=== PATIENT | female | born 1960 | race Caucasian/White ===

== ENCOUNTER → 2016-08-17 | Day surgery (SDC) | payer OTHER ==
--- NOTE | 2016-08-10 15:57 | MH ---
cc: RISA AVILA M.D. DATE OF ADMISSION: 08/17/2016 PRINCIPAL DIAGNOSIS Right breast cancer. ATTENDING PHYSICIAN Risa Avila MD HISTORY OF PRESENT ILLNESS The patient is a 56-year-old female who was noted to have a BI-RADS 5 density in the right breast on a screening mammogram May 05 at [facility]. This was confirmed with a diagnostic right breast mammogram and ultrasound on May 26 where a palpable 12-mm hypoechoic nodule was noted in the 12 o'clock location 4 cm from the nipple. Ultrasound-guided core biopsy confirmed a moderately differentiated invasive ductal carcinoma. Clinically the patient has stage I disease but she has opted for bilateral mastectomy with immediate reconstruction. PAST MEDICAL HISTORY Medical problems include: Hypertension, history of metabolic syndrome but these resolved after gastric bypass in 2010 and she has lost over 100 pounds since her surgery. She also has thyroid nodules and had a transient ischemic attack 7 years ago. PAST SURGERIES Included a section in 1980 for breech delivery, gastric bypass, laparoscopic appendectomy in 2014, total abdominal hysterectomy and bilateral salpingo-oophorectomy in 2003 for endometriosis. She has also required two laparoscopic surgeries for lysis of adhesions from small bowel obstruction. CURRENT MEDICATIONS Tylenol and bariatric vitamins. ALLERGIES She has no documented drug allergies but does not take aspirin products because of her gastric pouch. REPRODUCTIVE HISTORY G2, P1, A1. Menarche age 13, first child age 21. She had a tubal in the past and had surgical menopause at age 44. She took hormone replacements for approximately 2 months after her hysterectomy but none since that time. FAMILY HISTORY Significant for a sister with uterine cancer. REVIEW OF SYSTEMS A 12-point review of systems was significant for pelvic abdominal pain related to scar. PHYSICAL EXAMINATION GENERAL: She is alert and oriented x3 and in no acute distress. VITAL SIGNS: She was 5 feet 6 inches and weighed 171 pounds with a BMI of 27.6. Blood pressure was 133/81, temperature 97, heart rate 61, respirations 17. HEENT: Exam was unremarkable. NECK: The neck was supple with no adenopathy or thyromegaly. CHEST: Chest was clear throughout. CARDIAC: Cardiac exam was unremarkable. BREASTS: Exam revealed fibrocystic change and the right breast was larger than the left. A 1 cm superior lateral quadrant mass was palpated in the right breast at 12 o'clock 4 cm from the nipple with a healed biopsy site. ABDOMEN: Abdominal exam revealed well-healed port scars and a hysterectomy scar but there was no masses or tenderness. The remainder of her exam was unremarkable. IMPRESSION Ms. Valle has clinical stage I invasive ductal carcinoma and has opted for a bilateral mastectomy with immediate reconstruction. She has seen Dr. Lind to coordinate reconstruction and will also need a right axillary sentinel lymph node biopsy. She understands the risks and benefits of the procedure and has agreed to proceed. MD FLAVIO Sanchez/WING /1:58 PM /3:54 PM
--- NOTE | 2016-08-14 15:16 | TH ---
cc: DAWSON CABA M.D. DATE: 08/17/2016 DATE OF : 1960 PROCEDURE TO BE PERFORMED Bilateral insertion of tissue expanders ADM, 133SV-15. HISTORY OF PRESENT ILLNESS This is a 56-year-old female who was recently diagnosed with breast cancer and is here in order to address breast reconstruction options. PAST MEDICAL HISTORY 1. Hypercholesterolemia. 2. Borderline diabetes. PAST SURGICAL HISTORY 1. Appendectomy. 2. . 3. Gastric bypass. 4. Cholecystectomy. 5. Hysterectomy. MEDICATIONS Escitalopram oxalate once a day. SOCIAL HISTORY The patient is an ex-smoker. Habits are benign. REVIEW OF SYSTEMS Noncontributory to the recurrent breast problem. BREAST HISTORY No knowledge of family history of breast cancer. PHYSICAL EXAMINATION GENERAL APPEARANCE: The patient is a well-developed female in no acute distress. Body habitus is within normal limits. There appear to be no deformities. Appears to have attention to grooming. HEENT: Conjunctiva and lids are within normal anatomical limits. The pupils are reactive to light and accommodation, size and symmetry. There is no evidence of exudate, hemorrhage, or vessel change. The external inspection of the ears and nose fails to demonstrate any pathology, scars, lesions, or masses. Nasal mucosa, septum, and turbinates appear to be well-hydrated as well as the lips and gums. No evidence of masses in the hypopharynx or submental area. CHEST: The patient shows no evidence of intercostal retractions. LUNGS: Clear to auscultation without any abnormal sounds or rubs. CARDIOVASCULAR: The patient has a normal heart rate and rhythm. There is no evidence of noted carotid bruits. Femoral pulses and pedal pulses in the extremities are also within normal limits. ABDOMEN: Soft with no evidence of masses or tenderness. Unable to palpate the liver or spleen. No evidence of hernia. MUSCULOSKELETAL: Appears to be reasonable range of motion of the head, neck, spine, ribs, pelvis, right upper extremity, left upper extremity, right lower extremity, and left lower extremity. The muscle strength and tone appears to be equal and within accepted limits. SKIN: There are no rashes, lesions, or ulcers on the trunk, back or extremities. NEUROLOGICAL: Examination is grossly normal. PSYCHIATRIC: The patient appears to have good orientation of time, place, and person. Does not appear to have any mood affects of depression, anxiety, or agitation. BREASTS: The breasts have been thoroughly examined. Obviously there is a deformity in the right breast where the cancer . Otherwise the left breast has slight ptosis. Asymmetric. ASSESSMENT AND PLAN After discussing the options with the patient, at least 30 minutes [id number], tissue expansion with AlloDerm was been addressed and discussed. We are planning on utilizing 133SV-15 tissue supervisor filling and packing with appropriate AlloDerm. The risks and possible complications were discussed in detail. Will schedule with Dr. Moseley. MD SARA Ordonez/MARII /2:16 PM /3:03 PM
[~2016-08-17] MED LIST: ACETAMINOPHEN 1000 MG/100 ML VIAL IV ONE; ACETAMINOPHEN/HYDROcodone 325 MG/5 MG TAB ONE; BACITRACIN IM FOR SOLN 50,000 UNIT VIAL ONE; BIOTIN PO; BUPIVACAINE HCL PF 0.5% 30 ML VIAL ONE; BUPIVACAINE/EPINEPHRINE 0.5% PF 30 ML VIAL ONE; CALCTAB32 PO; DICY20TA10 PO; GENTAMICIN SULFATE 80 MG/2 ML VIAL ONE; IRONTAB5 PO; ISOSULFAN BLUE 50 MG/5 ML VIAL SQ ONE; KETOROLAC TROMETHAMINE 30 MG/ML (IVP) VIAL ONE; KLOR8TAB PO; LACTATED RINGER'S 1000 ML INJ 1,000 ML ONE; LIDOCAINE 1%/EPINEPHrine 1:100,000 SOLN 30 ML VIAL ONE; MIDAZOLAM HCL 2 MG/2 ML VIAL ONE; MORPHINE SULFATE 4 MG/ML INJ ONE; ONDANSETRON HCL 4 MG/2 ML VIAL IV PUSH ONE; PROBIOTIC PO; PROPOFOL 200 MG/20 ML AMP IV ONE; RASPBERRY KETONE PO; SAFF1000 PO; SODIUM CHLORIDE 0.9% 20 ML VIAL ONE; SODIUM CHLORIDE 0.9% INJ 10 ML ONE; TAB-TAB PO; ceFAZolin 2 GM PREMIX 50 ML ONE; ceFAZolin INJ 1,000 MG VIAL ONE
--- NOTE | 2016-08-17 15:15 | TN ---
cc: RISA AVILA M.D. DATE OF SURGERY: 08/17/2016 PRINCIPAL DIAGNOSIS Right breast cancer. PROCEDURE PERFORMED Bilateral nipple sparing mastectomy with right axillary sentinel lymph node biopsy and immediate tissue podiatrist orthopedic reconstruction. SURGEON Risa Avila MD and Skyler Lind MD ANESTHESIA General via LMA device. INDICATION The patient is a 56-year-old female with newly diagnosed right breast cancer. Clinically she had stage I disease but she opted for bilateral mastectomy with immediate reconstruction. FINDINGS AT THE TIME OF SURGERY Two sentinel lymph nodes were identified. #1 had no count but was 1+ blue. #2 had no count and was not blue but it was somewhat suspicious. Touch prep was not performed. PROCEDURE PERFORMED After informed consent was obtained and site verification was performed, the patient was brought to the radiology suite where she underwent peritumoral radionuclide injection. She was then brought to the major operating room where she underwent general anesthesia via LMA device. She received a single dose of IV Ancef and sequential compression hose were placed. 200 ccs of tumescent solution mixed with 0.5% Marcaine with epinephrine was then infiltrated bilaterally and in the plane between the subcutaneous fat and anterior breast fascia as well as in the retro-glandular space above the pectoralis fascia. Both breasts were then prepped and draped in sterile fashion. 3 ccs of half-strength Lymphazurin were injected in the subareolar right breast and a 5-minute massage was performed. An inframammary crease incision was then created sharply and further sharp dissection was performed to develop the anterior plane between the subcutaneous fat and anterior breast fascia medially and laterally to the level of the nipple. Electrocautery dissection was then used to dissect the breast and pectoralis fascia off the pectoralis muscle medially and laterally up to the level of the clavicle. Further sharp dissection was then performed in the area of the nipple and a frozen section biopsy of the undersurface of the nipple was sent for frozen section on both sides which was negative for malignancy. Further sharp dissection was performed in the anterior plane up to the level of the clavicle and the breast was then oriented with two sutures anteriorly, one short suture superiorly, and one long suture laterally. The specimen was sent for permanent pathologic evaluation and good hemostasis was noted with electrocautery. A second counter incision was then created just beneath the axillary hairline using sharp dissection as well as electrocautery. The clavipectoral fascia was divided and the level I axilla was entered. Two palpable low level I lymph nodes were identified and each was circumferentially dissected free from surrounding structures using the harmonic scalpel. Lymph node #1 was 1+ blue and lymph node #2 was not blue or hot but it was suspicious. Both lymph nodes were sent for permanent pathologic evaluation and there was no other palpable adenopathy in the axilla. Good hemostasis was noted and reconstruction was then performed by Dr. Lind and will be included on a separate dictation. MD FLAVIO Sanchez/WING /2:16 PM /3:01 PM
--- NOTE | 2016-08-17 15:39 | TN ---
cc: SKYLER LIND DATE OF SURGERY: 08/17/2016 PREOPERATIVE DIAGNOSIS: Right breast cancer. POSTOPERATIVE DIAGNOSIS: Right breast cancer. OPERATIVE PROCEDURE PERFORMED: 1. Left simple mastectomy. 2. Left reconstruction utilizing a tissue digital content specialist AlloDerm. 3. Right breast reconstruction utilizing a tissue digital content specialist AlloDerm. 4. Closure of the axillary incision of complex repair, grand total of 5 cm. SURGEON: Skyler Lind MD, FACS. HEARING AID REPAIRER: Kenzie Galvin MS-3. ANESTHESIA: LMA/general. I also utilized approximately 120 cc of dilute Marcaine and injectable saline. DRAINS: A total of 4 (two per site) 10 and 7, respectively Beto-Zelaya drains in the subcutaneous plane and the subpectoral plane. IMPLANT DATA AND VOLUMES: 1. The patient's right breast tissue digital content specialist is a 133SZ of the [employer]. The total volume is 460; injected today, 300. The serial number of the right device is [id number]. 2. The serial number of the left tissue digital content specialist is [id number]. I also injected 300 for the maximum of 450. DESCRIPTION OF THE PROCEDURE IN DETAIL: She was properly consented, marked properly, anesthetized. The skin was sterilized with Betadine solution and sterile draping was applied. Utilizing a 15 blade after the proper tumescent fluid applied at the inframammary fold approximately 6-7 cm, a mastectomy was created by the subcutaneous plane and then the supra- fascia plane. The breast specimen was properly removed and anchored utilizing a superior short suture and a long lateral. A frozen section of the tubular area failed to demonstrate any pathology on both breasts. Elevation of the pectoralis major muscle at this point was properly carried out and reinforced at the inferomedial base with a 6 x 16 AlloDerm. The tissue digital content specialist was properly placed, deflated and then expanded to 300 cc. It was anchored with 2-0 Monocryl suture at the inframammary fold as well as the inferior edge of the pectoralis major muscle. The wound was closed utilizing multiple 2-0 Monocryl suture layers in the Naty's fascia, dermis and subcutaneous. Two drains were brought out before closing and they were placed as follows: The 10 mm Beto-Zelaya drain was placed in the subcutaneous plane and the 7 mm Beto-Zelaya drain was placed in the subpectoral plane. Those were secured utilizing 2-0 Monocryl suture, Biopatch and Tegaderm was utilized to secure the area as well. Attention was directed to the right breast where a mastectomy had been performed by Dr. Risa Roberts as well as an axillary sampling. I proceeded to close the axillary sampling by putting deep into the fascia of the axillary area sutures and a complex repair about 5 to [address] down to the Naty's, dermis and subcutaneous. Again, the complex repair was about 5 to 6 cm. In a similar fashion, the pectoralis major muscle on the right chest area was properly elevated. Lateral and inferior capsulorrhaphies were carried out in order to re-establish the anatomical landmarks. In the same fashion as previously described the tissue digital content specialist was introduced and reinforced with 6 x 16 Alloderm and anchored with the same 2-0 Monocryl suture material and expanded up to 3-0 Monocryl suture and the closure was done in a similar fashion as previously described. All drains were put to work and they were actually very active and held suction very well. The tissue appeared to be viable at the end of the procedure. Absorbing compression dressings were applied. The patient was awakened and extubated in the operating room and transferred back to the post-anesthesia care unit in stable condition. No complications were appreciated. The patient tolerated the procedure fairly well. MD SARA Ordonez/KATHE /2:56 PM /3:29 PM TANG
== END | disposition home or self-care (01) ==
LOC: ESDC 08:25
PROVIDERS: ATTEND Surgery
DX: C50.911 Malignant neoplasm of unspecified site of right female breast (principal)
CPT/HCPCS: 00400; 00402; 01610; 15777; 19304; 19357; 38525; 38792; 88305; 88307; 88331; C1789; J0131; J0690; J1580; J1885; J2250; J2270; J2405; J3010; J7120; Q4100; Q9968; 88309

== ENCOUNTER → 2016-11-28 | Day surgery (SDC) | payer OTHER ==
--- NOTE | 2016-11-24 11:39 | TH ---
cc: DAWSON CABA M.D. DATE: 11/24/2016 PROCEDURE PREFORMED: Removal of tissue expanders and placement for Inspire CX 580. HISTORY OF PRESENT ILLNESS: This is a pleasant 56 year-old female who back in August 17, 2016, underwent mastectomies with tissue medical office clerk reconstruction. The patient has done very well, has expanded without any difficulties and is ready to proceed with the exchange. PAST MEDICAL HISTORY: 1. Otherwise significant for hypercholesteremia. 2. Borderline diabetes. MEDICATIONS Escitalopram oxalate. PAST SURGICAL HISTORY: 1. Appendectomy fixation. 2. Gastric bypass. 3. Cholecystectomy. PHYSICAL EXAMINATION: CONSTITUTIONAL: General appearance. The patient is a well-developed Female in no acute distress. Body habitus is within normal limits. There appear to be no deformities. Appears to have attention to grooming. HEENT: Eyes Conjunctivae and lids are within normal anatomical limits. The pupils are reactive to light and accommodation, size, and symmetry. There is no evidence of exudate, hemorrhage, or vessel change. Ears, mouth, nose, and throat The external inspection of the ears and nose fails to demonstrate any pathology, scars, lesions, or masses. Nasal mucosa, septum, and turbinates appear to be well hydrated as well as the lips and gums. No evidence of masses in the hypopharynx or submental area. RESPIRATORY: The patient shows no evidence of intercostal refractions. Otherwise, lungs are clear to auscultation without any abnormal sounds or rubs. CARDIOVASCULAR: The patient has a normal heart rate and rhythm. There is no evidence of noticed carotid bruits. Femoral pulses and pedal pulses in extremities are also within normal limits. GASTROINTESTINAL/ABDOMEN: Soft with no evidence of masses or tenderness. Unable to palpate the liver or spleen. No evidence of hernia. MUSCULOSKELETAL: Appears to be reasonable range of motion on the head, neck, spine, ribs, pelvis, right upper extremity, left upper extremity, right lower extremity, and left lower extremity. The muscle strength and tone appears to be equal and within accepted limits. SKIN: There is no rashes, lesions, or ulcers on the trunk, back, and extremities. NEUROLOGICAL: Examination is grossly normal. PSYCHIATRIC: The patient appears to have good orientation of time, place, and person. Does not appear to have any mood effects of depression, anxiety, or agitation. ASSESSMENT: The breasts have been thoroughly examined, showed well healed inframammary incisions and mastectomy incisions and has otherwise no evidence of pathology. PLAN: The plan is for removal of implants, tissue expanders and placement for implants. MD SARA Ordonez/philip /11:10 AM /11:12 AM
[~2016-11-28] MED LIST changes: -ACETAMINOPHEN/HYDROcodone 325 MG/5 MG TAB ONE; -BUPIVACAINE HCL PF 0.5% 30 ML VIAL ONE; +BUPIVACAINE/EPINEPHRINE 0.25% PF 30 ML VIAL ONE; -BUPIVACAINE/EPINEPHRINE 0.5% PF 30 ML VIAL ONE; -ISOSULFAN BLUE 50 MG/5 ML VIAL SQ ONE; +KETOROLAC TROMETHAMINE 30 MG/ML (IVP) VIAL IV PUSH ONE; -KETOROLAC TROMETHAMINE 30 MG/ML (IVP) VIAL ONE; +LIDOCAINE 1%/EPINEPHrine 1:100,000 SOLN 20 ML VIAL ONE; -LIDOCAINE 1%/EPINEPHrine 1:100,000 SOLN 30 ML VIAL ONE; +MEPERIDINE HCL 25 MG/ML VIAL ONE; -MIDAZOLAM HCL 2 MG/2 ML VIAL ONE; -MORPHINE SULFATE 4 MG/ML INJ ONE; -SODIUM CHLORIDE 0.9% 20 ML VIAL ONE; -ceFAZolin 2 GM PREMIX 50 ML ONE
--- NOTE | 2016-11-28 14:09 | TN ---
cc: DAWSON CABA M.D. DATE OF SURGERY: 11/28/2016 PREOPERATIVE DIAGNOSIS Status post bilateral mastectomy with tissue expansion reconstruction. POSTOPERATIVE DIAGNOSIS Status post bilateral mastectomy with tissue expansion reconstruction. PROCEDURE: Removal, or replacement of Mercedes tissue expanders for implants Juany cartagena SCX 580 cc's. Serial number of the right breast implant device is [id number] and serial number of the left breast implant device [id number]. PROCEDURE NOTE She was properly consented, marked properly anesthetized the skin was sterilized with Betadine solution and sterile draping applied also 30 cc of 1% lidocaine epinephrine was mixed with 0.25% Marcaine and 2:1 ratio. Through a inframammary previous incision the capsule was encountered, the tissue cereal miller was removed laterally and a capsulorrhaphies were done bilaterally along the anterior axillary line and inframammary fold. Isolation of the skin was done with Tegaderm and introduction of the implant was carried out. We did exactly the same procedure on the other side. The wounds were closed in multiple layers utilizing 2-0 Monocryl suture in the capsule, dermis and Subcu. After Mastisol strips were applied. No complications appreciated. The patient the procedure well. MD SARA Ordonez/philip /1:54 PM /2:02 PM MTDKathleen
== END | disposition home or self-care (01) ==
LOC: ESDC 10:04
PROVIDERS: ATTEND Plastic Surgery
DX: Z42.1 Encounter for breast reconstruction following mastectomy (principal); Z85.3 Personal history of malignant neoplasm of breast
CPT/HCPCS: 00400; 11970; C1789; J0131; J0690; J1580; J1885; J2175; J2405; J3010; J7120

== ENCOUNTER → 2017-07-02 | Day surgery (SDC) | payer OTHER ==
--- NOTE | 2017-06-29 10:50 | TH ---
cc: DAWSON CABA M.D. DATE 06/29/2017 DATE OF 1960 PROCEDURE TO BE PERFORMED Bilateral mastopexy with revision reconstruction. HISTORY OF PRESENT ILLNESS This is a 56-year-old female who underwent placement of tissue bunch maker hand after mastectomy back on August of this current year with the change of the expanders with implants in November of this current year. The patient has developed significant ptosis and asymmetry reason for which we are doing this procedure. PAST MEDICAL HISTORY Otherwise significant for: 1. Hypercholesterolemia 2. Borderline diabetes MEDICATIONS Includes Escitalopram oxalate. PAST SURGICAL HISTORY 1. Appendectomy 2. Gastric bypass 3. Cholecystectomy PHYSICAL EXAMINATION CONSTITUTIONAL: General appearance. The patient is a well-developed female in no acute distress. Body habitus is within normal limits. There appear to be no deformities. Appears to have attention to grooming. HEENT: Eyes Conjunctivae and lids are within normal anatomical limits. The pupils are reactive to light and accommodation, size, and symmetry. There is no evidence of exudate, hemorrhage, or vessel change. Ears, mouth, nose, and throat The external inspection of the ears and nose fails to demonstrate any pathology, scars, lesions, or masses. Nasal mucosa, septum, and turbinates appear to be well hydrated as well as the lips and gums. No evidence of masses in the hypopharynx or submental area. RESPIRATORY: The patient shows no evidence of intercostal refractions. Otherwise, lungs are clear to auscultation without any abnormal sounds or rubs. BREASTS: Both breasts show well-healed inframammary mastectomy incisions, otherwise ptosis and areas of contour irregularity. CARDIOVASCULAR: The patient has a normal heart rate and rhythm. There is no evidence of noticed carotid bruits. Femoral pulses and pedal pulses in extremities are also within normal limits. GASTROINTESTINAL/ABDOMEN: Soft with no evidence of masses or tenderness. Unable to palpate the liver or spleen. No evidence of hernia. MUSCULOSKELETAL: Appears to be reasonable range of motion on the head, neck, spine, ribs, pelvis, right upper extremity, left upper extremity, right lower extremity, and left lower extremity. The muscle strength and tone appears to be equal and within accepted limits. SKIN: There is no rashes, lesions, or ulcers on the trunk, back, and extremities. NEUROLOGICAL: Examination is grossly normal. PSYCHIATRIC: The patient appears to have good orientation of time, place, and person. Does not appear to have any mood effects of depression, anxiety, or agitation. PLAN Revision/reconstruction, micro fat injections and bilateral mastopexy. The procedure has been explained in detail to the patient. MD SARA Ordonez/ELI /10:21 AM /10:28 AM
[~2017-07-02] MED LIST changes: +ACETAMINOPHEN 1000 MG/100 ML 100 ML IV ONE; -ACETAMINOPHEN 1000 MG/100 ML VIAL IV ONE; +ACETAMINOPHEN/HYDROcodone 325 MG/5 MG TAB ONE; -BACITRACIN IM FOR SOLN 50,000 UNIT VIAL ONE; -GENTAMICIN SULFATE 80 MG/2 ML VIAL ONE; -KETOROLAC TROMETHAMINE 30 MG/ML (IVP) VIAL IV PUSH ONE; +KETOROLAC TROMETHAMINE 30 MG/ML (IVP) VIAL ONE; -LIDOCAINE 1%/EPINEPHrine 1:100,000 SOLN 20 ML VIAL ONE; +LIDOCAINE 1%/EPINEPHrine 1:100,000 SOLN 30 ML VIAL ONE; +LIDOCAINE HCL 1% 50 ML VIAL ONE; +MIDAZOLAM HCL 2 MG/2 ML VIAL ONE; -ONDANSETRON HCL 4 MG/2 ML VIAL IV PUSH ONE; -PROPOFOL 200 MG/20 ML AMP IV ONE; -SODIUM CHLORIDE 0.9% INJ 10 ML ONE
--- NOTE | 2017-07-02 09:45 | TN ---
cc: SKYLER LIND M.D. DATE OF SURGERY: 07/02/2017 PREOPERATIVE DIAGNOSIS Status post bilateral mastectomy for further tissue pony trimmer/implant reconstruction with further deformity and ptosis. POSTOPERATIVE DIAGNOSIS Status post bilateral mastectomy for further tissue pony trimmer/implant reconstruction with further deformity and ptosis. PROCEDURE Revision reconstruction utilizing micro fat injections as well as bilateral mastopexy. SURGEON Skyler Lind MD FACS. ANESTHESIA LMA general. ESTIMATED BLOOD LOSS Minimal. COMPLICATIONS None. The total liposuction removed from the lower abdomen was 1000 cc. Total tumescent placed 1000 cc. Total suitable for injection 540 cc with 361 cc to the right breast and 181 cc to the left breast. The mastopexy was set at 22 cm from the sternal notch, 42 mm areolar diameter. DETAILS OF PROCEDURE The patient was properly consented, marked and anesthetized. The skin was sterilized with Betadine solution and sterile draping applied. The area was properly tumesced at the lower abdomen for 1000 cc of tumescent fluid in which 1000 cc 30 cc of 1% lidocaine with epinephrine was mixed. 1000 cc was harvested from the lower abdomen and flanks and suitable for injection was 540 cc. This was decanted and washed and put into smaller syringes where injections were carried out in the usual fashion. The right breast received 361 cc's and the left breast received 181 cc's.The patient was sat up tailor tack technique was utilized to assess the excess of skin on the right breast which was properly temporarily marked with surgical naila. This was properly marked with the marking pen. The naila were removed. The skin was de-epithelialized. The wounds were closed utilizing 2-0 Monocryl suture in the dermis and subcu. Then the NAC was brought up utilizing PTFE 2-0 as well as 2-0 Quill. The same approach and technique was performed on the left breast. Prineo Dermabond was applied thereafter. For the puncture wounds that were done utilizing an 11-blade for the harvesting of the fat and injection of the fat were closed utilizing 5-0 chromic suture and Steri-Strips applied. Absorbent dressing was applied thereafter. Good viability of tissue was noted at the end of the case. The patient was awakened, extubated in the operating room and transferred back to the post-anesthesia care unit in stable condition. No complications were appreciated. The patient tolerated the procedure fairly well. MD SARA Ordonez/MARII /9:29 AM /9:34 AM TANG
== END | disposition home or self-care (01) ==
LOC: ESDC 06:09
PROVIDERS: ATTEND Plastic Surgery
DX: N65.0 Deformity of reconstructed breast (principal); Z85.3 Personal history of malignant neoplasm of breast; N64.81 Ptosis of breast
CPT/HCPCS: 00402; 19316; 19380; J0131; J0690; J1885; J2175; J2250; J3010; J7120

== ENCOUNTER → 2017-12-27 | Day surgery (SDC) | payer OTHER ==
[~2017-12-27] VITALS: Ht 165.1 cm; Wt 82.1 kg
[~2017-12-27] MED LIST changes: -ACETAMINOPHEN 1000 MG/100 ML 100 ML IV ONE; -ACETAMINOPHEN/HYDROcodone 325 MG/5 MG TAB ONE; +ANAS1TAB PO; +BUPIVACAINE HCL PF 0.5% 10 ML VIAL ONE; -BUPIVACAINE/EPINEPHRINE 0.25% PF 30 ML VIAL ONE; +CALC1TAB16 PO; -CALCTAB32 PO; +CEPH-459 PO; +CHLORHEXIDINE GLUCONATE 2 % 1 PACK (2 CLOTHS) TOPICAL PRN; +HYDR-3288 PO; +IRON COMBINATIONS PO; -IRONTAB5 PO; -KETOROLAC TROMETHAMINE 30 MG/ML (IVP) VIAL ONE; -LACTATED RINGER'S 1000 ML INJ 1,000 ML ONE; +LACTATED RINGER'S 1000 ML IV PRN; -LIDOCAINE 1%/EPINEPHrine 1:100,000 SOLN 30 ML VIAL ONE; -LIDOCAINE HCL 1% 50 ML VIAL ONE; +LIDOCAINE HCL 2% 50 ML VIAL ONE; -MEPERIDINE HCL 25 MG/ML VIAL ONE; +METOPROLOL TARTRATE 25 MG TAB PO PRN; +NEOMYCIN/POLYMYXIN 1 ML G.U. IRRIGANT ONE; +NO ITAB PO; +POVIDONE IODINE 5% (ANTISEPSIS KIT) 4 APPLICATIONS EACH NARE PRN; -SAFF1000 PO; +SODIUM CHLORID 0.9% 500 ML IV PRN; -TAB-TAB PO; +[UNRECOGNIZED DRUG - CODE] PO; +ceFAZolin 1,000 MG/NS 100 ML IV SCH; -ceFAZolin INJ 1,000 MG VIAL ONE
--- NOTE | 2017-12-27 10:36 | MP ---
cc: Tho Canseco MD DATE OF OPERATION: 12/27/2017 PREOPERATIVE DIAGNOSIS: Left thumb trigger finger. POSTOPERATIVE DIAGNOSIS: Left thumb trigger finger. PROCEDURE PERFORMED: Left thumb A1 joe release. SURGEON: Tho Canseco III, MD PROCEDURE: The patient was brought to the operating room, placed supine on the operating table. After the correct site and side of surgery were verified by members of each team in the room multiple times including the patient and myself and after adequate preoperative markings and preoperative written consent were verified by everyone and after adequate preoperative timeout was performed to everyone's satisfaction and after adequate IV sedation had been achieved, the left upper extremity was prepped and draped in the traditional sterile surgical fashion. A 50:50 mixture of 2% plain lidocaine and 0.5% plain Marcaine was infiltrated in the skin and subcutaneous tissue in the area of the A1 joe. The limb was exsanguinated. A highly placed, well-padded axillary tourniquet was inflated to 200 mmHg for a total of 7 minutes. A transversely oriented incision at the MP flexion crease within the skin crease was made and carried down through skin and subcutaneous tissue. Blunt dissection was performed. Neurovascular structures were retracted out of the way. The A1 joe was identified and found to be very thick and redundant. It was divided in its entirety in its midline which completely freed the flexor tendon. The flexor tendon did not appear to be compromised in any other way. Exploration proximally and distally did not reveal any other crossing bands of tissue causing constriction. There were no other anatomic abnormalities. Thorough irrigation with saline was performed. Passive range of motion was full and unrestricted. Skin edges were reapproximated using a running 4-0 nylon suture. The hand and arm were thoroughly cleansed and dried. Betadine, Adaptic dressing applied on top of the wound followed by a bulky soft dressing. The axillary tourniquet was released. The hand and all the fingers became immediate soft, pink, warm with brisk capillary refill of less than 2 seconds. The patient was awakened from anesthesia and transported to the postanesthesia care unit awake and in stable condition at the end of the case. Sponge, needle and instrument counts were correct at the end of the case as reported by the nurses in the room. MD OLAMIDE Glasgow , 10:21 AM , 10:35 AM
[2017-12-27 11:30] VITALS: BP 129/80; PULSE 61; RESP 16; TEMP 97.6; O2SAT 100
--- NOTE | 2017-12-27 18:28 | EKG ---
Date Performed: 12/27/2017 Time Performed: 08:44:14 PTAGE: 57 years EKG: Sinus rhythm NORMAL ECG PREVIOUS TRACING : 09/20/2012 15.05 Since the previous tracing, no significant change noted DOCTOR: Le Diego Interpretating Date/Time 12/27/2017 18:27:13
== END | disposition home or self-care (01) ==
LOC: PHSDC 07:26
PROVIDERS: ATTEND Orthopaedic Surgery Hand Surgery
DX: M65.312 Trigger thumb, left thumb (principal); Z01.810 Encounter for preprocedural cardiovascular examination
CPT/HCPCS: 01810; 26055; 93005; J2250; J7120

== ENCOUNTER → 2018-01-09 | Day surgery (SDC) | payer OTHER ==
[~2018-01-09] VITALS: Ht 165.1 cm; Wt 82.0 kg
[~2018-01-09] MED LIST changes: -DICY20TA10 PO; -KLOR8TAB PO; -RASPBERRY KETONE PO; -[UNRECOGNIZED DRUG - CODE] PO
--- NOTE | 2018-01-09 09:14 | MP ---
cc: Tho Canseco MD DATE OF OPERATION: 01/09/2018 PREOPERATIVE DIAGNOSIS: Right ring finger trigger finger. POSTOPERATIVE DIAGNOSIS: Right ring finger trigger finger. PROCEDURE PERFORMED: Right fourth A1 joe release. SURGEON: Tho Canseco III, MD PROCEDURE: The patient was brought to the operating room and placed supine on the operating table. After the correct site and side of surgery were verified by members of each team in the room multiple times including the patient and myself and after adequate preoperative markings, and preoperative written consent were verified by everyone and after an adequate preoperative timeout was performed to everyone's satisfaction and after adequate IV sedation had been achieved, the right upper extremity was prepped and draped in the traditional sterile surgical fashion. A 50:50 mixture of 2% plain lidocaine and 0.5% plain Marcaine was infiltrated in the skin and subcutaneous tissue. The limb was exsanguinated with an Philipp wrap. A highly placed, well padded axillary tourniquet was inflated to 200 mmHg for a total of 7 minutes. A transversely oriented incision within the skin crease at the palmar flexion crease was made and carried down through skin and subcutaneous tissue. Blunt dissection was performed. Flexor tendon was identified and followed distally to the A1 joe, which was found to be very thick and redundant and this was incised in its midline in its entirety from its proximal-most to its distal-most extent and exploration proximally was done as well that did not reveal any further bands of scar tissue or binding. The flexor tendons were not compromised otherwise. There were no other anatomic abnormalities identified. Thorough irrigation with saline was performed. Skin edges were reapproximated using running 4-0 nylon suture. The hand and arm were thoroughly cleansed and dried. Betadine, Adaptic dressing was applied on top of the wound followed by a bulky soft dressing. The axillary tourniquet was released. The hand and all the fingers including the ring finger became immediately soft, pink and warm and have brisk capillary refill of less than 2 seconds. The patient was awakened from anesthesia and transported to the postanesthesia care unit awake and in stable condition at the end of the case. Sponge, needle and instrument counts were correct at the end of the case as reported by nurses in the room. MD OLAMIDE Glasgow , 08:50 AM , 09:12 AM
[2018-01-09 09:40] VITALS: BP 117/74; PULSE 78; RESP 16; TEMP 98.1; O2SAT 99
== END | disposition home or self-care (01) ==
LOC: PHSDC 06:07
PROVIDERS: ATTEND Orthopaedic Surgery Hand Surgery
DX: M65.341 Trigger finger, right ring finger (principal); I10 Essential (primary) hypertension; G45.9 Transient cerebral ischemic attack, unspecified; M85.80 Other specified disorders of bone density and structure, unspecified site; E04.1 Nontoxic single thyroid nodule; F32.9 Major depressive disorder, single episode, unspecified; Z98.84 Bariatric surgery status; Z87.891 Personal history of nicotine dependence; Z85.3 Personal history of malignant neoplasm of breast
CPT/HCPCS: 01810; 26055; J0690; J2250; J7120